=== PATIENT | male | born 1975 | race Two or more races ===

== ENCOUNTER 2019-03-09 10:01 | Day surgery (SDC) | payer OTHER ==
[~2019-03-09] VITALS: Ht 160 cm; Wt 59.9 kg
[2019-03-09] VITALS (8 sets, daily range): BP systolic 113–128; BP diastolic 56–82
--- NOTE | 2019-03-09 07:28 | Operative Note - PDOC ---
Operative Note Operative Note Pre-op Diagnosis: left shoulder impingement Procedure: see op report Post-op Diagnosis: same as pre-op plus Operative Findings: consistent w/pre-op dx studies Anesthesia: MAC Specimen: none Complications: none Condition: stable Estimated Blood Loss: none Implant(s) used?: No Jose Alfredo Harris MD Mar 09, 2019 07:28
--- NOTE | 2019-03-09 07:28 | Pre-Procedure Note/Attestation ---
Pre-Procedure Note/Attestation Complete Prior to Procedure Planned Procedure: left Procedure Narrative: shoulder arthroscopy, sad Indications for Procedure Pre-Operative Diagnosis: left shoulder impingement Attestation I attest that I discussed the nature of the procedure; its benefits; risks and complications; and alternatives (and the risks and benefits of such alternatives ), prior to the procedure, with the patient (or the patient's legal territory account representative). I attest that, if there was a reasonable possibility of needing a blood transfusion, the patient (or the patient's legal territory account representative) was given the [facility] standardized written summary, pursuant to the [employer]ax Thelma Blood Safety Act ([place] Health and Safety Code # 1645, as amended). I attest that I re-evaluated the patient just prior to the surgery and that there has been no change in the patient's H&P, except as documented below: Jose Alfredo Harris MD Mar 09, 2019 07:28
[~2019-03-09 10:01] MED LIST: ATORVASTATIN CA40 MG ORAL; D5 1/2NS 1,000 ML IV SCH; HYDROcodone/Acetamin 5/325 tab ORAL PRN; HYDROmorphone 1mg/ml Carpuject SUBQ PRN; INVOKANA300 MG PO; METFORMIN HCL1000 M1 ORAL; Tylenol #3 tab (300mg/30mg) ORAL PRN; ceFAZolin 1gm IVPB IVPB ONE; celeBREX 200mg Cap **SURGERY PATIENTS ONLY ORAL ONE; oxyCONTIN 20mg tab ORAL ONE
[2019-03-09] MEDS ORDERED: ACTOS30 MG ORAL (11:54)
[2019-03-09] MEDS ORDERED: LISINOPRIL2.5 MG ORAL (11:54)
[2019-03-09] MEDS ORDERED: oxyCONTIN 20mg tab ORAL ONE (12:00)
[2019-03-09] MEDS ORDERED: celeBREX 200mg Cap **SURGERY PATIENTS ONLY ORAL ONE (12:00)
[2019-03-09] MEDS ORDERED: Ropivacaine 5mg/ml Vial 30ml INJ ONE (12:08)
[2019-03-09] MEDS ORDERED: EPINEPHrine 1mg/1ml Amp ONE ×2 (12:08→12:28)
--- NOTE | 2019-03-09 12:18 | Anethesia Preoperative Eval ---
Anesthesia Pre-op PMH/ROS General Date of Evaluation: Mar 09, 2019 Time of Evaluation: 12:32 Anesthesiologist: Obi ASA Score: ASA 3 Mallampati Score Class I : Soft palate, uvula, fauces, pillars visible Class II: Soft palate, uvula, fauces visible Class III: Soft palate, base of uvula visible Class IV: Only hard plate visible Mallampati Classification: Class II Surgeon: Steven Diagnosis: L Shoulder Pain Surgical Procedure: L Shoulder Arthroscopy Anesthesia History: none Family History: no anesthesia problems Allergies: Coded Allergies: No Known Allergies (Unverified , 03/09/19) Medications: see eMAR Patient NPO?: Yes Past Medical History Cardiovascular: Reports: HTN, other - HL Endocrine: Reports: DM Anesthesia Pre-op Phys. Exam Physician Exam Last Vital Signs Date Time Temp Pulse Resp B/P (MAP) Pulse Ox O2 Delivery O2 Flow Rate FiO2 03/09/19 11:56 Room Air 03/09/19 11:44 97.7 60 18 113/60 99 Constitutional: NAD Neurologic: CN 2-12 intact Cardiovascular: RRR Respiratory: CTA Gastrointestinal: S/NT/ND Airway Exam Mallampati Score: Class II MO: full ROM: full Teeth: intact Anesthesia Pre-op A/P Risk Assessment & Plan Assessment: ASA 3 Plan: GA, SED, Supraclavicular Block Pre-Antibiotics Dru Gram Ancef IV Given Within 1 Hr of Incision: Yes Time Given: 12:55 Bandar Crocker MD Mar 09, 2019 12:18
--- NOTE | 2019-03-09 12:19 | Immediate Post-Op Evaluation ---
Immediate Post-Op Evalulation Immediate Post-Op Evalulation Procedure: L Shoulder Arthroscopy Date of Evaluation: Mar 09, 2019 Time of Evaluation: 14:37 IV Fluids: 600 LR Blood Products: 0 Estimated Blood Loss: 10 Urinary Output: 0 Blood Pressure Systolic: 128 Blood Pressure Diastolic: 61 Pulse Rate: 91 Respiratory Rate: 16 O2 Sat by Pulse Oximetry: 100 Temperature (Fahrenheit): 97 Pain Score (1-10): 2 Nausea: No Vomiting: No Complications 0 Patient Status: awake, reacts, patent, extubated, none Hydration Status: adequate Dru Gram Ancef IV Given Within 1 Hr of Incision: Yes Time Given: 12:55 Bandar Crocker MD Mar 09, 2019 12:19
--- NOTE | 2019-03-09 12:20 | 48 Hour Post Anesthesia Eval ---
Post Anesthesia Evaluation Procedure: L Shoulder Arthroscopy Date of Evaluation: Mar 09, 2019 Time of Evaluation: 16:47 Blood Pressure Systolic: 132 0: 78 Pulse Rate: 82 Respiratory Rate: 18 Temperature (Fahrenheit): 98.2 O2 Sat by Pulse Oximetry: 99 Airway: patent Nausea: No Vomiting: No Pain Intensity: 1 Hydration Status: adequate Cardiopulmonary Status: Stable Mental Status/LOC: patient returned to baseline Follow-up Care/Observations: 0 Post-Anesthesia Complications: 0 Follow-up care needed: ready to discharge Bandar Crocker MD Mar 09, 2019 12:20
[2019-03-09] MEDS ORDERED: Sodium Chloride 10ml vial INJ ONE (12:21)
[2019-03-09] MEDS ORDERED: Lidocaine 1% MPF 10mg/ml 5ml ONE (12:21)
[2019-03-09] MEDS ORDERED: Dexamethasone 4mg/ml vial ONE (12:25)
[2019-03-09] MEDS ORDERED: Duramorph PF 5mg/10ml amp ONE (12:28)
[2019-03-09] MEDS ORDERED: Kenalog-40 1ml Vial ONE (12:28)
[2019-03-09] MEDS ORDERED: Ketorolac 30mg Inj ONE (12:28)
[2019-03-09] MEDS ORDERED: Bupivacaine 0.25% Inj 30ml INJ ONE (12:28)
[2019-03-09] MEDS ORDERED: Bupivacaine w/Epi 0.5% 30ml Vial INJ ONE (12:29)
[2019-03-09] MEDS ORDERED: Propofol 200mg/20ml IV ONE (12:30)
[2019-03-09] MEDS ORDERED: LR 1000ml ONE (12:30)
[2019-03-09] MEDS ORDERED: NS Irrig 4000ml IRRIG ONE (13:40)
--- NOTE | 2019-03-09 18:15 | Operative Note - Dictated ---
DATE OF OPERATION: 03/09/2019 PREOPERATIVE DIAGNOSIS: Left shoulder impingement syndrome. POSTOPERATIVE DIAGNOSIS: Left shoulder impingement syndrome. PROCEDURE: 1. Left shoulder diagnostic arthroscopy. 2. Left shoulder subacromial decompression bursectomy. SURGEON: Jose Alfredo Harris M.D. ANESTHESIA: Interscalene general. INDICATION FOR PROCEDURE: The patient is a pleasant gentleman with continued left shoulder pain, failed conservative treatment, elected to undergo left shoulder diagnostic arthroscopy and subacromial decompression bursectomy. Risks, limitations, expectations, complications of procedure were discussed in detail. All questions addressed. DESCRIPTION OF PROCEDURE: After informed consent was obtained, the patient was brought to the operating room. The patient was placed under interscalene general anesthesia. The patient then placed in a beach chair position. Left shoulder was prepped and draped in a sterile manner. Time-out was performed. Inferolateral stab incision was then made. Trocar was introduced into the glenohumeral joint. There is no significant chondral damage. The anterior labrum appeared to be intact along with the superior labrum. The biceps tendon was intact along with the subscap. The supraspinatus and infraspinatus were intact. At this point, the camera was then placed in the subacromial space. There was hypertrophic bursal tissue. Undersurface of acromion was identified. Acromioplasty was started from medial to lateral completed from posterior to anterior. The bursectomy was completed. Instruments removed. Portal sites were closed with 3-0 Monocryl sutures. Steri-Strips and a sterile dressing were applied. ESTIMATED BLOOD LOSS: None. COMPLICATIONS: None. SPECIMENS: None. IMPLANTS: None. Jose Alfredo Harris M.D. DR: MIKKI JOB#: [id number] CC:
== END 2019-03-09 15:40 | disposition home or self-care (01) ==
LOC: SUR 10:01
DX: M75.42 Impingement syndrome of left shoulder (principal); E11.9 Type 2 diabetes mellitus without complications; I10 Essential (primary) hypertension; E78.00 Pure hypercholesterolemia, unspecified; Z79.899 Other long term (current) drug therapy; Z79.84 Long term (current) use of oral hypoglycemic drugs
CPT/HCPCS: 29822; 82962; J0171; J0690; J1100; J1885; J2250; J2405; J2704; J2795; J3301; 94003; 94150